=== PATIENT | male | born 1965 | race Hispanic/Latino ===

== ENCOUNTER 2022-01-23 21:26 | Emergency (ER) | payer SELFPAY ==
[~2022-01-23] VITALS: Ht 180.3 cm; Wt 84.4 kg
[2022-01-24] MEDS ORDERED: PEPCID20 MG PO (00:25)
[2022-01-24] MEDS ORDERED: DIPHENHYDRAM50 M2 PO (00:25)
[2022-01-24] MEDS ORDERED: MEDDOSEPAK PO (00:25)
[2022-01-24 00:39] VITALS: BP 168/99
== END 2022-01-24 00:50 | disposition home or self-care (01) | DRG 916 ==
LOC: ED 21:26
DX: T78.40XA Allergy, unspecified, initial encounter (principal)